=== PATIENT | female | born 1950 | race American Indian/Alaskan Native ===

== ENCOUNTER 2017-04-01 12:34 | Emergency (ER) | payer MEDICARE ==
[2017-04-01 12:38] VITALS: TEMP 97.8
[2017-04-01 14:48] LABS: CHLORIDE 104 mmol/L (98-107)
[2017-04-01 14:49] LABS: POTASSIUM 3.7 mmol/L (3.6-5.2); SODIUM 140 mmol/L (132-148)
[2017-04-01 14:51] LABS: ALB/GLOB RATIO 1.2 (1.0-2.1); ALKALINE PHOSPHATASE 112 U/L (38-126); ALT/SGPT 35 U/L (9-52); AST/SGOT 38 U/L (14-36); BILIRUBIN,TOTAL 0.6 mg/dL (0.2-1.3); BLOOD UREA NITROGEN 10 mg/dL (7-17); CARBON DIOXIDE 24 mmol/L (22-30); GFR AFRICAN-AMERICAN > 60; GLUCOSE,RANDOM 97 mg/dL (65-105); TOTAL PROTEIN 7.2 g/dL (6.3-8.3)
[2017-04-01 14:52] LABS: CALCIUM 8.3 mg/dl (8.6-10.4)
[2017-04-01 15:02] LABS: RBC URINE 5 /hpf (0-3); URINE BACTERIA RARE (<OCC); URINE BILIRUBIN NEGATIVE (NEGATIVE); URINE BLOOD NEGATIVE (NEGATIVE); URINE COLOR Yellow (YELLOW); URINE GLUCOSE (UA) 1+ mg/dL (Normal); URINE KETONE NEGATIVE (NEGATIVE); URINE LEUKOCYTE ESTERASE 3+ Leu/uL (Negative); URINE PROTEIN NEGATIVE (NEGATIVE); WBC URINE 41 /hpf (0-5)
[2017-04-01 15:28] LABS: BASO % 0.6 % (0.0-2.0); EOS # 0.1 K/uL (0.0-0.7); EOS % 1.4 % (0.0-4.0); HEMATOCRIT 43.4 % (34.0-47.0); LYMPH # 2.2 K/uL (1.0-4.3); LYMPH % 37.7 % (20.0-40.0); MEAN CELL VOLUME 96.7 fL (81.0-99.0); MEAN CORPUSCULAR HEMOGLOBIN 31.3 pg (27.0-31.0); MEAN CORPUSCULAR HGB CONC 32.4 g/dL (33.0-37.0); MEAN PLATELET VOLUME 7.6 fL (7.2-11.7); MONO # 0.4 K/uL (0.0-0.8); MONO % 6.9 % (0.0-10.0); RED CELL DISTRIBUTION WIDTH 13.6 % (11.5-14.5); WHITE BLOOD COUNT 5.7 K/uL (4.8-10.8)
--- NOTE | 2017-04-01 16:20 | C.PDOC ---
History Of Present Illness 66 y/o female presents to the emergency department for evaluation of a vague abdominal pain which began around 3 days ago. Patient reports she experienced nausea and vomiting two days ago, but the symptoms have now resolved. Patient denies fever, chills, back pain, dysuria, diarrhea. Time Seen by Provider: 04/01/17 13:29 Chief Complaint (Nursing): Abdominal Pain History Per: Patient History/Exam Limitations: no limitations Onset/Duration Of Symptoms: Days Current Symptoms Are (Timing): Still Present Location Of Pain/Discomfort: Diffuse Radiation Of Pain To:: None Quality Of Discomfort: "Pain" Associated Symptoms: Nausea, Vomiting. denies: Fever, Chills, Urinary Symptoms Additional History Per: Patient Abnormal Vaginal Bleeding: No Past Medical History Reviewed: Historical Data, Nursing Documentation, Vital Signs Vital Signs: Last Vital Signs Temp 97.8 F 04/01/17 12:37 Pulse 66 04/01/17 16:30 Resp 16 04/01/17 16:30 BP 125/80 04/01/17 16:30 Pulse Ox 97 04/01/17 17:39 - Medical History PMH: Diabetes, HTN, Hypercholesterolemia, Seizures Surgical History: No Surg Hx Family History: States: Unknown Family Hx - Social History Hx Tobacco Use: No Hx Alcohol Use: No Hx Substance Use: No - Immunization History Hx Tetanus Toxoid Vaccination: No Hx Influenza Vaccination: No Hx Pneumococcal Vaccination: No Review Of Systems Except As Marked, All Systems Reviewed And Found Negative. Constitutional: Negative for: Fever, Chills Gastrointestinal: Positive for: Nausea, Vomiting, Abdominal Pain. Negative for : Diarrhea Genitourinary: Negative for: Dysuria Physical Exam - Physical Exam Appears: Non-toxic, No Acute Distress, Other (obese) Skin: Normal Color, Warm, Dry Head: Atraumatic, Normacephalic Eye(s): bilateral: Normal Inspection Oral Mucosa: Moist Neck: Normal ROM, Supple Chest: Symmetrical, No Deformity, No Tenderness Cardiovascular: Rhythm Regular, No Murmur Respiratory: Normal Breath Sounds, No Rales, No Rhonchi, No Wheezing Gastrointestinal/Abdominal: Tenderness (vague, epigastric ), No Guarding, No Rebound Back: Normal Inspection, No Vertebral Tenderness, No Paraspinal Tenderness Extremity: Normal ROM, Capillary Refill (less than 2 seconds ) Neurological/Psych: Oriented x3, No Normal Speech (mute from prior CVA ), Normal Cognition Gait: Steady ED Course And Treatment - Laboratory Results Result Diagrams: 04/01/17 15:21 04/01/17 14:32 Lab Interpretation: Normal (trop neg, UA 41 WBC's) ECG: Interpreted By Me ECG Rhythm: Sinus Rhythm ECG Interpretation: Normal Rate From EC O2 Sat by Pulse Oximetry: 97 (on RA) Pulse Ox Interpretation: Normal - Radiology CXR: Interpreted by Me CXR Interpretation: Yes: No Acute Disease - Other Rad CT abd/pelvis X-Ray: Interpreted by Me (+FOS, no obst/no acute findings.), Read By Radiologist Progress Note: labs, CT A/P ordered and reviewed. Pt received Toradol IV. Reevaluation Time: 17:38 Reassessment Condition: Unchanged (remains asymptomatic) Medical Decision Making Medical Decision Making: acute on chronic constipation. Disposition Doctor Will See Patient In The: Office Counseled Patient/Family Regarding: Studies Performed, Diagnosis - Disposition Referrals: Karine Fam MD [Staff Provider] - Disposition: HOME/ ROUTINE Disposition Time: 17:39 Condition: GOOD Additional Instructions: drink a bottle of Mag Citrate now and re-evaluate after using the bathroom 2-3 times Continue Colace 100 mg twice a day (stool softner) to help prevent constipation More water and more walking. Follow-up with Dr. Fam Prescriptions: Nitrofurantoin Macrocrystals [Macrobid] 1 cap PO BID #9 cap Instructions: Constipation (ED), Urinary Tract Infection in Women (ED), Gas and Bloating (ED) - Clinical Impression Clinical Impression: Constipation, Colicky periumbilical abdominal pain - Scribe Statement The provider has reviewed the documentation as recorded by the Scribe (Tahira Rolon) Provider Attestation: All medical record entries made by the Scribe were at my direction and personally dictated by me. I have reviewed the chart and agree that the record accurately reflects my personal performance of the history, physical exam, medical decision making, and the department course for this patient. I have also personally directed, reviewed, and agree with the discharge instructions and disposition.
[2017-04-01] MEDS ORDERED: Iodixanol 320 MG/ML 100 ML BOTTLE IV ONE (16:21)
--- NOTE | 2017-04-01 17:32 | CT ---
PROCEDURE: CT Abdomen and Pelvis with contrast HISTORY: n/v/d x 3D, ? divertic vs colitis COMPARISON: CT abdomen and pelvis with contrast performed 12/28/15 TECHNIQUE: Contrast dose: 100 mL Visipaque This Radiation dose: Total exam DLP = 930.75 mGy-cm. This CT exam was performed using one or more of the following dose reduction techniques: Automated exposure control, adjustment of the mA and/or kV according to patient size, and/or use of iterative reconstruction technique. FINDINGS: LOWER THORAX: Basilar atelectasis. No visible pleural effusion or pneumothorax. LIVER: Hypoattenuation of the liver compatible with hepatic steatosis. GALLBLADDER AND BILE DUCTS: Unremarkable. PANCREAS: Unremarkable. SPLEEN: Unremarkable. ADRENALS: Bilateral adrenal gland hypertrophy. KIDNEYS AND URETERS: The kidneys enhance symmetrically. No evidence of hydronephrosis or obstructing calculus. VASCULATURE: Right-sided pelvic vascular stent. No aortic aneurysm. BOWEL: Stomach is nondistended. Lack of oral contrast limits evaluation for bowel pathology. Bowel loops appear within normal limits of caliber without evidence of obstruction. APPENDIX: Not identified. No secondary signs of acute appendicitis. PERITONEUM: No significant free fluid. No definite free air. LYMPH NODES: No bulky adenopathy identified. BLADDER: Decompressed urinary bladder limits evaluation. REPRODUCTIVE: Uterus is present. BONES: No acute osseous abnormality is detected. OTHER FINDINGS: None. IMPRESSION: Send bibasilar atelectasis. Hepatic steatosis. Bilateral adrenal gland hypertrophy. Additional incidental findings as above.
[2017-04-01 17:38] VITALS: O2SAT 97
[2017-04-01 18:10] VITALS: BP 106/70; PULSE 65; RESP 18
== END 2017-04-01 18:24 | disposition home or self-care (01) ==
LOC: C.ER 12:34
DX: R10.33 Periumbilical pain (principal); K59.00 Constipation, unspecified; R10.84 Generalized abdominal pain
CPT/HCPCS: 74177; 80053; 81001; 83690; 84484; 85025; 96374; 99285; G0480; J1885; Q9967

== ENCOUNTER 2017-06-26 16:35 | Emergency (ER) | payer MEDICARE ==
[2017-06-26] MEDS ORDERED: Iohexol 240 (50 ml) PO STA (16:58)
[2017-06-26] MEDS ORDERED: Sodium Chloride 0.9% 1,000 ML IV ONE (16:58)
[2017-06-26] MEDS ORDERED: Sodium Chloride 0.9% 1,000 ML ONE (17:09)
[2017-06-26] MEDS ORDERED: Iohexol 240 (50 ml) ONE (17:19)
[2017-06-26 17:29] LABS: BASO % 0.7 % (0.0-2.0); EOS # 0.1 K/uL (0.0-0.7); EOS % 1.5 % (0.0-4.0); HEMATOCRIT 44.4 % (34.0-47.0); LYMPH # 1.6 K/uL (1.0-4.3); LYMPH % 31.3 % (20.0-40.0); MEAN CELL VOLUME 95.7 fL (81.0-99.0); MEAN CORPUSCULAR HEMOGLOBIN 31.6 pg (27.0-31.0); MEAN CORPUSCULAR HGB CONC 33.1 g/dL (33.0-37.0); MEAN PLATELET VOLUME 7.8 fL (7.2-11.7); MONO # 0.4 K/uL (0.0-0.8); MONO % 7.1 % (0.0-10.0); RED CELL DISTRIBUTION WIDTH 14.1 % (11.5-14.5); WHITE BLOOD COUNT 5.1 K/uL (4.8-10.8)
[2017-06-26 17:30] LABS: RBC URINE 2 /hpf (0-3); TRANSITIONAL EPITHIAL 1 /hpf (0-3); URINE BACTERIA RARE (<OCC); URINE BILIRUBIN NEGATIVE (NEGATIVE); URINE BLOOD NEGATIVE (NEGATIVE); URINE COLOR Yellow (YELLOW); URINE GLUCOSE (UA) NORMAL (Normal); URINE HYALINE CAST 0-2 /lpf (0-2); URINE KETONE NEGATIVE (NEGATIVE); URINE PROTEIN NEGATIVE (NEGATIVE); WBC URINE 3 /hpf (0-5)
[2017-06-26 17:33] LABS: CHLORIDE 107 mmol/L (98-107)
[2017-06-26 17:34] LABS: POTASSIUM 3.1 mmol/L (3.6-5.2); SODIUM 144 mmol/L (132-148)
[2017-06-26 17:36] LABS: AST/SGOT 33 U/L (14-36); BILIRUBIN,TOTAL 0.7 mg/dL (0.2-1.3); CARBON DIOXIDE 23 mmol/L (22-30); GFR AFRICAN-AMERICAN > 60; TOTAL PROTEIN 7.4 g/dL (6.3-8.3)
[2017-06-26 17:36] LABS: URINE LEUKOCYTE ESTERASE NEGATIVE Leu/uL (Negative)
[2017-06-26 17:37] LABS: ALB/GLOB RATIO 1.1 (1.0-2.1); ALKALINE PHOSPHATASE 151 U/L (38-126); ALT/SGPT 47 U/L (9-52); BLOOD UREA NITROGEN 6 mg/dL (7-17); CALCIUM 9.6 mg/dl (8.6-10.4); GLUCOSE,RANDOM 103 mg/dL (65-105)
[2017-06-26] MEDS ORDERED: Iohexol 300 100 ML IJ ONE (17:55)
[2017-06-26] MEDS ORDERED: Potassium Chloride 20 mEq/15 ml LIQ UD PO STA (18:12)
--- NOTE | 2017-06-26 18:30 | C.PDOC ---
History Of Present Illness 66 y/o female, brought to ED by daughter, who reports the patient has been c/o right sided abdominal pain associated with 4 episodes of vomiting and nausea. Denies fever, blood in urine or stool, diarrhea, or other associated symptoms. Patient with history of CVA and has difficulty answering some questions. Chief Complaint (Nursing): Abdominal Pain History Per: Family (daughter) History/Exam Limitations: clinical condition Onset/Duration Of Symptoms: Days Current Symptoms Are (Timing): Still Present Location Of Pain/Discomfort: RUQ, RLQ Radiation Of Pain To:: None Quality Of Discomfort: "Pain" Associated Symptoms: Nausea, Vomiting. denies: Fever, Chills, Diarrhea, Urinary Symptoms Recent travel outside of the [place]: No Past Medical History Reviewed: Historical Data, Nursing Documentation, Vital Signs Vital Signs: Last Vital Signs Temp 98.2 F 06/26/17 21:11 Pulse 58 L 06/26/17 21:11 Resp 18 06/26/17 21:11 BP 97/70 L 06/26/17 21:11 Pulse Ox 97 06/26/17 21:11 - Medical History PMH: Diabetes, HTN, Hypercholesterolemia, Seizures Family History: States: Unknown Family Hx - Social History Hx Tobacco Use: No Hx Alcohol Use: No Hx Substance Use: No - Immunization History Hx Tetanus Toxoid Vaccination: No Hx Influenza Vaccination: No Hx Pneumococcal Vaccination: No Review Of Systems Except As Marked, All Systems Reviewed And Found Negative. Constitutional: Negative for: Fever, Chills Cardiovascular: Negative for: Chest Pain Respiratory: Negative for: Cough, Shortness of Breath, Wheezing Gastrointestinal: Positive for: Nausea, Vomiting, Abdominal Pain. Negative for : Diarrhea, Hematochezia Genitourinary: Negative for: Hematuria Skin: Negative for: Rash Physical Exam - Physical Exam Appears: Non-toxic, No Acute Distress Skin: Normal Color, Warm, Dry Head: Atraumatic, Normacephalic Oral Mucosa: Moist Neck: Normal ROM, Supple Chest: Symmetrical Cardiovascular: Rhythm Regular, No Murmur Respiratory: Normal Breath Sounds, No Rales, No Rhonchi, No Wheezing Gastrointestinal/Abdominal: Soft, Tenderness (R sided, mild abdominal tenderness. Lower > Upper ), No Guarding, No Rebound Back: Normal Inspection, No CVA Tenderness Extremity: Normal ROM, Capillary Refill (< 2 sec.) Neurological/Psych: Oriented x3, Normal Speech, Normal Cognition ED Course And Treatment - Laboratory Results Result Diagrams: 06/26/17 17:18 06/26/17 17:18 O2 Sat by Pulse Oximetry: 95 (RA) Pulse Ox Interpretation: Normal Progress Note: CT abdomen/pelvis and labs ordered. Zofran, IVFs, potassium chloride po given. Disposition - Disposition Referrals: Shoaib Fam [Staff Provider] - Disposition: HOME/ ROUTINE Disposition Time: 21:00 Condition: IMPROVED Additional Instructions: Thank you for letting us take care of you today. Your provider was Dr. Martini. You were treated for abdominal pain. The emergency medical care you received today was directed at your acute symptoms. If you were prescribed any medication, please fill it and take as directed. It may take several days for your symptoms to resolve. Return to the Emergency Department if your symptoms worsen, do not improve, or if you have any other problems. Please contact your doctor or call one of the physicians/clinics you have been referred to that are listed on the Patient Visit Information form that is included in your discharge packet. Bring any paperwork you were given at discharge with you along with any medications you are taking to your follow up visit. Our treatment cannot replace ongoing medical care by a primary care provider (PCP) outside of the emergency department. Thank you for allowing the [facility] team to be part of your care today. Follow up with your doctor in 1-2 days for re-evaluation and further management. Instructions: Abdominal Pain (ED) Forms: [employer] ([place]) - Clinical Impression Clinical Impression: Abdominal pain - Scribe Statement The provider has reviewed the documentation as recorded by the John Paul Flores Provider Attestation: All medical record entries made by the John Paul were at my direction and personally dictated by me. I have reviewed the chart and agree that the record accurately reflects my personal performance of the history, physical exam, medical decision making, and the department course for this patient. I have also personally directed, reviewed, and agree with the discharge instructions and disposition.
[2017-06-26] MEDS ORDERED: Potassium Chloride 20 mEq/15 ml LIQ UD ONE (18:39)
[2017-06-26 19:21] VITALS: RESP 18
--- NOTE | 2017-06-26 20:53 | CT ---
EXAM: CT Abdomen and Pelvis With Intravenous Contrast EXAM DATE/TIME: Exam ordered 06/26/2017 4:59 PM CLINICAL HISTORY: 66 years old, female; Pain; Abdominal pain; Flank; Right lower quadrant (rlq); Additional info: Right-sided abdominal pain - rlq>ruq TECHNIQUE: Axial computed tomography images of the abdomen and pelvis with intravenous contrast. All CT scans at this facility use one or more dose reduction techniques, viz.: automated exposure control; ma/kV adjustment per patient size (including targeted exams where dose is matched to indication; i.e. head); or iterative reconstruction technique. Coronal and sagittal reformatted images were created and reviewed. CONTRAST: 100 mL of OMNI 300 administered intravenously. COMPARISON: CT - ABD PELVIS IV CONTRAST ONLY 12/28/2015 10:19:37 PM FINDINGS: Lower thorax: Mild hypoventilatory changes noted in the dependent portion of both lung bases. There tiny bilateral pleural effusions. There is a small hiatal hernia. ABDOMEN: Liver: Unremarkable. No mass. Gallbladder and bile ducts: Unremarkable. No calcified stones. No ductal dilation. Pancreas: Unremarkable. No mass. No ductal dilation. Spleen: Unremarkable. No splenomegaly. Adrenals: Unremarkable. No mass. Kidneys and ureters: 2 less than 2 mm low-density subcapsular renal lesions are seen in the right kidney. No hydronephrosis. Stomach and bowel: There are scattered colonic diverticula. No obstruction. No mucosal thickening. Appendix: No findings to suggest acute appendicitis. PELVIS: Bladder: Unremarkable. No mass. Reproductive: Unremarkable as visualized. ABDOMEN and PELVIS: Intraperitoneal space: Unremarkable. No free air. No significant fluid collection. Bones/joints: No acute fracture. No dislocation. Soft tissues: There is a healed infraumbilical midline abdominal incision. Vasculature: There is a right iliofemoral graft. A high-grade stenosis is noted the just beyond the anastomosis to the right common iliac vein. The right superficial femoral artery appears occluded. Severe atherosclerotic disease is noted of the left common iliac and external iliac artery. The vessel occludes at the level of the superficial femoral artery.. No abdominal aortic aneurysm. Lymph nodes: Unremarkable. No enlarged lymph nodes. IMPRESSION: 1. High grade stenosis noted within the right ilio-femoral graft just beyond the common iliac anastomosis.. 2. Severe atherosclerotic narrowing noted of the left common and external iliac artery. 3. 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 4. Scattered colonic diverticula. 5. Small hiatal hernia. 6. Tiny bilateral pleural effusions with mild hypoventilatory changes are present in the dependent portion of both lung bases.
[2017-06-26 21:11] VITALS: BP 97/70; PULSE 58; TEMP 98.2
[2017-06-26 21:44] VITALS: O2SAT 95
== END 2017-06-26 21:19 | disposition home or self-care (01) ==
LOC: C.ER 16:35
DX: R10.9 Unspecified abdominal pain (principal); I10 Essential (primary) hypertension; E11.9 Type 2 diabetes mellitus without complications
CPT/HCPCS: 74177; 80053; 81001; 83690; 85025; 87086; 87181; 96361; 96374; 96376; 99285; J2405; J7040; Q9966; Q9967

== ENCOUNTER 2017-09-08 09:03 | Emergency (ER) | payer MEDICARE ==
[2017-09-08 10:03] VITALS: RESP 20; TEMP 98.3
--- NOTE | 2017-09-08 10:11 | C.PDOC ---
History Of Present Illness 66 y/o female, whose PMHx includes CVA, DM, HTN, Hypercholesterolemia,and seizures, is brought to ED by EMS and accompanied by daughter, who reports the patient has been c/o right sided abdominal pain associated with vomiting and nausea since this morning. Patient's daughter, who is at bedside, states patient 's vomitus appeared "black." h/o episodes of abdominal pain in the past, first time with dark emisis. Denies fever, blood in urine or stool, diarrhea, or other associated symptoms. Denies symptoms. Patient with history of CVA and has difficulty answering some questions. Normal BM yesterday. Time Seen by Provider: 09/08/17 09:50 Chief Complaint (Nursing): GI Problem History Per: Family (daughter) History/Exam Limitations: clinical condition Current Symptoms Are (Timing): Still Present Location Of Pain/Discomfort: Diffuse Radiation Of Pain To:: None Quality Of Discomfort: "Pain" Associated Symptoms: Nausea, Vomiting. denies: Fever, Diarrhea Additional History Per: EMS, Family Abnormal Vaginal Bleeding: No Past Medical History Reviewed: Historical Data, Nursing Documentation, Vital Signs Vital Signs: Last Vital Signs Temp 98.3 F 09/08/17 09:05 Pulse 63 09/08/17 13:55 Resp 20 09/08/17 13:55 BP 121/70 09/08/17 13:55 Pulse Ox 98 09/08/17 15:53 - Medical History PMH: Diabetes, HTN, Hypercholesterolemia, Seizures Surgical History: Coronary Stent Other Surgeries: unknown abdominal surgery, many years ago Family History: States: Unknown Family Hx - Social History Hx Tobacco Use: No Hx Alcohol Use: No Hx Substance Use: No - Immunization History Hx Tetanus Toxoid Vaccination: No Hx Influenza Vaccination: No Hx Pneumococcal Vaccination: No Review Of Systems Constitutional: Negative for: Fever Cardiovascular: Negative for: Chest Pain Gastrointestinal: Positive for: Nausea, Vomiting, Abdominal Pain. Negative for : Diarrhea, Hematochezia Genitourinary: Negative for: Dysuria, Frequency, Incontinence Physical Exam - Physical Exam Appears: Non-toxic, No Acute Distress Skin: Normal Color, Warm, Dry Head: Atraumatic, Normacephalic Eye(s): bilateral: Normal Inspection, EOMI Oral Mucosa: Moist Neck: Supple Chest: Symmetrical, No Deformity, No Tenderness Cardiovascular: Rhythm Regular, No Murmur Respiratory: Normal Breath Sounds, No Rales, No Rhonchi, No Wheezing Gastrointestinal/Abdominal: Soft, Tenderness (diffuse), No Guarding, No Rebound , Other (healed surgical incision to midline of lower quadrants ) Back: No CVA Tenderness, No Vertebral Tenderness Extremity: Capillary Refill (less than 2 seconds ) Neurological/Psych: Oriented x3, Normal Speech, Normal Cognition Gait: Steady Other Neurological Findings: Other (residual right-sided hemiparesis ) ED Course And Treatment - Laboratory Results Result Diagrams: 09/08/17 10:35 09/08/17 10:35 O2 Sat by Pulse Oximetry: 98 (on RA) Pulse Ox Interpretation: Normal Progress Note: Bloodwork and UA ordered and reviewed. Protonix IVP, Toradol IVP , Zofran IVP, and IV Fluids administered. On re-evaluation, pt notes pain persists. (+) lower abdomen tenderness. CT ordered. Stool occult was tried to retreive , no stool in vault. On re-evalaution, pain improved. Tolerating PO . Afebrile. Abdomen soft non tender. Discussed with daughter admission for further evaluation. daughter and pt note that pt does not want to stay in the hospital. Daughter states that she has been taking care of her mother for 13 years, she is at her baseline without any acute distress. Discussed signs of concnern and instructed to return to ER if any arise. Notes she has appt with Dr Fam on Saturday which she will follow up with. Dr Fam called but no call back . Pt and campground caretaker request discharge. Dr Fam called back at 430pm, after pt was discharged, discharge case and findings. notes he will follow up in the office. Discussed with Dr Blunt who evaluated labs and CT and agreed upon plan and discharge. Disposition - Disposition Referrals: Karine Fam MD [Staff Provider] - Disposition: HOME/ ROUTINE Disposition Time: 14:39 Condition: STABLE Additional Instructions: Follow up with your primary medical doctor or clinic in 2-5 days for further evaluation. Take medications as prescribed. Return to the emergency department at any time if symptoms persist or worsen. Prescriptions: Polyethylene Glycol 3350 [Miralax] 17 gm PO DAILY #85 gm Instructions: Constipation (ED), Acute Nausea and Vomiting (ED) Forms: [employer] ([place]) - Clinical Impression Clinical Impression: Constipation, Abdominal pain, Vomiting - PA / CASH PERSON / Resident Statement MD/DO has reviewed & agrees with the documentation as recorded. - Scribe Statement The provider has reviewed the documentation as recorded by the Scribe (Tahira Rolon) All medical record entries made by the Scribe were at my direction and personally dictated by me. I have reviewed the chart and agree that the record accurately reflects my personal performance of the history, physical exam, medical decision making, and the department course for this patient. I have also personally directed, reviewed, and agree with the discharge instructions and disposition.
[2017-09-08] MEDS ORDERED: Sodium Chloride 0.9% 1,000 ML IV ONE (10:13)
[2017-09-08] MEDS ORDERED: Sodium Chloride 0.9% 1,000 ML ONE (10:39)
[2017-09-08 10:44] LABS: BASO % 0.6 % (0.0-2.0); EOS % 0.7 % (0.0-4.0); HEMATOCRIT 42.7 % (34.0-47.0); LYMPH # 1.5 K/uL (1.0-4.3); LYMPH % 21.4 % (20.0-40.0); MEAN CELL VOLUME 96.1 fL (81.0-99.0); MEAN CORPUSCULAR HEMOGLOBIN 31.7 pg (27.0-31.0); MEAN PLATELET VOLUME 7.8 fL (7.2-11.7); MONO # 0.4 K/uL (0.0-0.8); MONO % 5.7 % (0.0-10.0); RED CELL DISTRIBUTION WIDTH 13.8 % (11.5-14.5)
[2017-09-08 10:49] LABS: RBC URINE 5 /hpf (0-3); URINE BILIRUBIN NEGATIVE (NEGATIVE); URINE BLOOD 1+ (NEGATIVE); URINE COLOR Yellow (YELLOW); URINE GLUCOSE (UA) NORMAL (Normal); URINE KETONE NEGATIVE (NEGATIVE); URINE LEUKOCYTE ESTERASE 1+ Leu/uL (Negative); URINE PROTEIN NEGATIVE (NEGATIVE); URINE UROBILINOGEN NORMAL mg/dL (0.2-1.0); WBC URINE 4 /hpf (0-5)
[2017-09-08 10:50] LABS: CHLORIDE 104 mmol/L (98-107); POTASSIUM 3.5 mmol/L (3.6-5.2); SODIUM 137 mmol/L (132-148)
[2017-09-08 10:52] LABS: BILIRUBIN,TOTAL 0.4 mg/dL (0.2-1.3); GFR AFRICAN-AMERICAN > 60
[2017-09-08 10:53] LABS: ALKALINE PHOSPHATASE 131 U/L (38-126); ALT/SGPT 55 U/L (9-52); AST/SGOT 27 U/L (14-36); BLOOD UREA NITROGEN 10 mg/dL (7-17); CALCIUM 8.6 mg/dl (8.6-10.4); CARBON DIOXIDE 21 mmol/L (22-30); GLUCOSE,RANDOM 143 mg/dL (65-105); TOTAL PROTEIN 7.9 g/dL (6.3-8.3)
[2017-09-08] MEDS ORDERED: Iodixanol 320 mg/ml 150 ml Bottle IV ONE (12:19)
[2017-09-08 13:56] VITALS: BP 121/70; PULSE 63
--- NOTE | 2017-09-08 14:01 | CT ---
PROCEDURE: CT Abdomen and Pelvis with contrast HISTORY: Abdominal pain COMPARISON: 06/26/2017. TECHNIQUE: Contrast dose: 100 mL Visipaque Radiation dose: Total exam DLP = 1035.03 MGy-cm. This CT exam was performed using one or more of the following dose reduction techniques: Automated exposure control, adjustment of the mA and/or kV according to patient size, and/or use of iterative reconstruction technique. FINDINGS: LOWER THORAX: There is dependent atelectasis in the lung bases. LIVER: The liver is normal in size and there is diffuse fatty infiltration. No gross lesion or ductal dilatation. GALLBLADDER AND BILE DUCTS: No calcified gallstones. PANCREAS: Normal in size with homogeneous enhancement. No gross lesion or ductal dilatation. SPLEEN: Normal in size and appearance. ADRENALS: No discrete nodule. KIDNEYS AND URETERS: Both kidneys are normal in size and there is homogeneous enhancement. There is a small cortical cyst in the left lower pole. No hydronephrosis. No solid mass. VASCULATURE: There are advanced atherosclerotic aortoiliac calcifications. There is endovascular stent graft in the right external right iliac artery. No aortic aneurysm. BOWEL: The small bowel loops are normal in caliber. There is moderate amount of stool in the colon and fecalization of small bowel contents. No bowel dilatation or obstruction. There is scattered colonic diverticula without CT evidence for acute diverticulitis. APPENDIX: No inflammatory changes in the right lower quadrant. PERITONEUM: No free fluid. No free air. LYMPH NODES: No enlarged lymph nodes. BLADDER: Unremarkable. REPRODUCTIVE: Unremarkable. BONES: No acute fracture. Within normal limits for the patient's age. OTHER FINDINGS: There is a small sliding hiatal hernia. IMPRESSION: No acute abdominal or pelvic abnormality. Scattered colonic diverticula without CT evidence for acute diverticulitis. Constipation with fecal stasis in the small bowel. Severe atherosclerotic aortoiliac disease. Fatty liver.
[2017-09-08 14:42] VITALS: O2SAT 98
== END 2017-09-08 15:04 | disposition home or self-care (01) ==
LOC: C.ER 09:03
DX: K59.00 Constipation, unspecified (principal); R11.10 Vomiting, unspecified; R10.9 Unspecified abdominal pain; I10 Essential (primary) hypertension; E11.9 Type 2 diabetes mellitus without complications; E78.00 Pure hypercholesterolemia, unspecified; Z87.891 Personal history of nicotine dependence
CPT/HCPCS: 74177; 80053; 81001; 83690; 85025; 96361; 96374; 96375; 99285; C9113; J1885; J2405; J7040; Q9967

== ENCOUNTER 2018-12-13 13:15 | Outpatient (CLI) | payer MEDICARE | END 2018-12-13 13:16 | disposition home or self-care (01) | LOC: C.MAMMO 13:15 | DX: Z12.31 Encounter for screening mammogram for malignant neoplasm of breast (principal) ==

== ENCOUNTER 2019-01-03 19:45 | Emergency (ER) | payer MEDICARE ==
[2019-01-03 19:46] VITALS: BMI 37.8
[2019-01-03 20:33] VITALS: TEMP 98; O2SAT 96
--- NOTE | 2019-01-03 20:43 | C.PDOC ---
History Of Present Illness 68 y/o female, with history of a previous stroke with right-sided weakness, comes in complaining of some cough, right-sided chest wall pain, and leg pain since earlier today. Most history was from daughter as patient has difficulty with her history; however patient is awake, alert, and oriented in the ER. As per daughter, patient is at baseline with no new neurological deficits. Time Seen by Provider: 01/03/19 20:42 Chief Complaint (Nursing): Chest Pain History Per: Family History/Exam Limitations: no limitations Onset/Duration Of Symptoms: Hrs Current Symptoms Are (Timing): Still Present Severity: Moderate Pain Scale Rating Of: 4 Quality: "Pain" Exacerbating Factors: None Recent travel outside of the [place]: No Additional History Per: Patient Past Medical History Reviewed: Historical Data, Nursing Documentation, Vital Signs Vital Signs: Last Vital Signs Temp 98 F 01/03/19 20:17 Pulse 105 H 01/03/19 20:17 Resp 13 01/03/19 20:17 BP 143/107 H 01/03/19 20:17 Pulse Ox 96 01/03/19 20:17 - Medical History PMH: Diabetes, HTN, Hypercholesterolemia, Seizures Surgical History: Coronary Stent Family History: States: No Known Family Hx - Social History Hx Tobacco Use: No Hx Alcohol Use: No Hx Substance Use: No - Immunization History Hx Tetanus Toxoid Vaccination: No Hx Influenza Vaccination: No Hx Pneumococcal Vaccination: No Review Of Systems Constitutional: Negative for: Fever, Chills Cardiovascular: Positive for: Chest Pain (right-sided chest wall pain). N egative for: Palpitations Respiratory: Positive for: Cough. Negative for: Shortness of Breath Gastrointestinal: Negative for: Nausea, Vomiting, Abdominal Pain, Diarrhea Genitourinary: Negative for: Dysuria, Hematuria Musculoskeletal: Positive for: Leg Pain (right) Neurological: Negative for: Headache, Dizziness Physical Exam - Physical Exam Appears: Non-toxic, No Acute Distress Skin: Warm, Dry Head: Normacephalic Eye(s): bilateral: PERRL Oral Mucosa: Moist Teeth: Edentulous Neck: Supple Chest: Tenderness (right chest wall tenderness under right breast, no rash noted) Cardiovascular: Rhythm Regular, No Murmur Respiratory: No Accessory Muscle Use, No Rales, Rhonchi (scattered), No Wheezing Gastrointestinal/Abdominal: Bowel Sounds (normal), Soft, No Tenderness, Distention, Other (obese) Extremity: No Pedal Edema, Other (right arm contracted) Neurological/Psych: Oriented x3, Normal Speech, Other (no focal deficits) ED Course And Treatment - Laboratory Results Result Diagrams: 01/03/19 21:00 01/03/19 21:00 ECG: Interpreted By Me, Viewed By Me ECG Rhythm: Sinus Rhythm (104), Nonspecific Changes (lvh) O2 Sat by Pulse Oximetry: 96 (RA) Pulse Ox Interpretation: Normal - Radiology CXR Interpretation: No: Infiltrates, Fracture, Cardiomegaly - CT Scan/US Ct head Other Rad Studies (CT/US): Read By Radiologist, Radiology Report Reviewed CT/US Interpretation: EXAM: CT Head without Intravenous Contrast. CLINICAL HISTORY: Patient with old hx of rt CVA Right sided weakness today Old report unobtainable. TECHNIQUE: Axial computed tomography images of the head/brain without intravenous contrast. 0.00 mGy-cm. COMPARISON: Comparison is made to previous CT brain examination dated 01/10/2012. FINDINGS: BRAIN. No acute intraparenchymal hemorrhage. No mass lesion. No CT evidence for acute territorial infarct. No midline shift or extra-axial collections. A large zone of post ischemic infarction and encephalomalacia is again identified in the left tnpikoo-baprekuy-etbuhudx regions. There are bilateral periventricular and subcortical white matter hypolucencies compatible with mild chronic microvascul ar disease. VENTRICLES: Asymmetrical dilatation of the left lateral ventricle is again noted, compensatory for the left sided encephalomalacia. ORBITS: The orbits are unremarkable. SINUSES AND MASTOIDS: Mucoperiosteal thickening is noted in the left sphenoid sinus compatible with sinusitis. The remaining paranasal sinuses and mastoid air cells are clear. BONES: No fracture. SOFT TISSUES: Unremarkable. IMPRESSION: 1. No acute intracranial abnormality. 2. Large zone of post ischemic infarction encephalomalacia in the left mkditvr-tlbgibvc-xwnfxgef lobes. 3. Compensatory dilatation of the left lateral ventricle again demonstrated. 4. Sphenoid sinusitis. 5. Otherwise, no significant interval change. . Electronically signed on Jan 03, 2019 10:17:27 PM EST by: Natalio Tapia M.D., [place] Certified By ABR & [facility]. Fellowship Trained MRI and CT Specialist Progress Note: Plan: --VBG. --Head CT. --EKG. --Labs. --Chest XR. --UA. --IV fluids 1L. pt has appointment on Saturday with dr Fam. They want to go to that appointment. do not want to stay Reevaluation Time: 00:08 Reassessment Condition: Improved Disposition Counseled Patient/Family Regarding: Studies Performed, Diagnosis, Need For Followup, Rx Given - Disposition Referrals: Karine Fam MD [Staff Provider] - Disposition: HOME/ ROUTINE Disposition Time: 20:42 Condition: FAIR Additional Instructions: Please return if symptoms recur Prescriptions: Ketorolac Tromethamine [Toradol] 10 mg PO TID PRN #12 tab PRN Reason: Pain, Severe (8-10) Ondansetron ODT [Zofran ODT] 1 odt PO BID PRN #6 odt PRN Reason: Nausea/Vomiting Instructions: Mastalgia (DC) Forms: [employer] (Greek) - Clinical Impression Clinical Impression: Mastalgia in female - Scribe Statement The provider has reviewed the documentation as recorded by the John Paul Wilkinson Provider Attestation: All medical record entries made by the Aurelioibgael were at my direction and personally dictated by me. I have reviewed the chart and agree that the record accurately reflects my personal performance of the history, physical exam, medical decision making, and the department course for this patient. I have also personally directed, reviewed, and agree with the discharge instructions and disposition.
[2019-01-03] MEDS ORDERED: Sodium Chloride 0.9% 1,000 ML IV SCH (21:00)
[2019-01-03 21:04] LABS: BASO # 0.2 K/uL (0.0-0.2); BASO % 2.7 % (0.0-2.0); EOS % 0.5 % (0.0-4.0); HEMOGLOBIN 16.1 g/dL (11.0-16.0); LYMPH # 2.4 K/uL (1.0-4.3); LYMPH % 35.2 % (20.0-40.0); MEAN CELL VOLUME 96.4 fL (81.0-99.0); MEAN CORPUSCULAR HEMOGLOBIN 31.7 pg (27.0-31.0); MEAN CORPUSCULAR HGB CONC 32.8 g/dL (33.0-37.0); MEAN PLATELET VOLUME 7.7 fL (7.2-11.7); MONO # 0.4 K/uL (0.0-0.8); MONO % 5.5 % (0.0-10.0); NEUT # 3.9 K/uL (1.8-7.0); NEUT % 56.1 % (50.0-75.0); NRBC % 0.1 % (0.0-2.0); RBC 5.07 Mil/uL (3.80-5.20); RED CELL DISTRIBUTION WIDTH 14.4 % (11.5-14.5); WHITE BLOOD COUNT 6.9 K/uL (4.8-10.8)
[2019-01-03 21:16] LABS: ALB/GLOB RATIO 1.3 (1.0-2.1); ALBUMIN 4.4 g/dL (3.5-5.0); BLOOD UREA NITROGEN 7 mg/dL (7-17); CALCIUM 9.2 mg/dl (8.6-10.4); GFR NON-AFRICAN AMERICAN > 60
[2019-01-03 21:31] LABS: INR 1.1; PROTHROMBIN TIME 11.9 SECONDS (9.7-12.2)
[2019-01-03 21:32] LABS: ALT/SGPT 32 U/L (9-52); AST/SGOT 30 U/L (14-36)
[2019-01-03 22:09] LABS: SQUAMOUS EPITHIAL 5 /hpf (0-5); URINE AMORPHOUS SEDIMENT OCC /ul (<OCC); URINE BILIRUBIN NEGATIVE (NEGATIVE); URINE BLOOD NEGATIVE (NEGATIVE); URINE CLARITY Hazy (Clear); URINE COLOR Yellow (YELLOW); URINE GLUCOSE (UA) 3+ mg/dL (Normal); URINE LEUKOCYTE ESTERASE NEG Leu/uL (Negative); URINE PROTEIN NEGATIVE (NEGATIVE)
[2019-01-04 00:16] VITALS: BP 148/92; PULSE 94; RESP 20
--- NOTE | 2019-01-04 09:05 | CT ---
Date of service: 01/03/2019 PROCEDURE: CT HEAD WITHOUT CONTRAST. HISTORY: hx of cva, r sided weakness(old) COMPARISON: Comparison is made to the previous study dated 01/10/2012 TECHNIQUE: Axial computed tomography images were obtained through the head/brain without intravenous contrast. Radiation dose: Total exam DLP = 1185.62 mGy-cm. This CT exam was performed using one or more of the following dose reduction techniques: Automated exposure control, adjustment of the mA and/or kV according to patient size, and/or use of iterative reconstruction technique. FINDINGS: HEMORRHAGE: No intracranial hemorrhage. BRAIN: Again noted is encephalomalacia at the left cerebral hemisphere consistent with old left MCA territory infarct. Mild volume loss is noted. White matter changes are again noted suggestive of chronic microvascular ischemic disease. VENTRICLES: Ex vacuo dilatation ventricle is again noted. Possible mild the hydrocephalus. CALVARIUM: Unremarkable. PARANASAL SINUSES: Moderate mucosal thickening noted in the left sphenoid sinus. MASTOID AIR CELLS: Unremarkable as visualized. No inflammatory changes. OTHER FINDINGS: None. IMPRESSION: No evidence of acute intracranial hemorrhage intracranial collection mass effect or midline shift. Redemonstration of large encephalomalacia at the left cerebral hemisphere consistent with old left MCA territory infarct and associated with ex vacuo dilatation of the left lateral ventricle. Volume loss and chronic microvascular ischemic disease. Additional findings as discussed above. Preliminary report contains concordant findings was submitted by [facility] Radiology.
--- NOTE | 2019-01-04 12:51 | RAD ---
Date of service: 01/03/2019 PROCEDURE: CHEST RADIOGRAPH, 1 VIEW HISTORY: SOB COMPARISON: Comparison is made with 02/18/2015 FINDINGS: LUNGS: No evidence of significant infiltrate or consolidation in the lungs. PLEURA: No pneumothorax or pleural fluid seen. CARDIOVASCULAR: No aortic atherosclerotic calcification present. Normal. OSSEOUS STRUCTURES: No significant abnormalities. VISUALIZED UPPER ABDOMEN: Normal. OTHER FINDINGS: None. IMPRESSION: No active disease.
--- NOTE | 2019-01-06 21:21 | CARD ---
APPROVED REPORT Date of service: 01/03/2019 EKG Measurement Heart [id number] <Conclusion> Sinus tachycardia Voltage criteria for left ventricular hypertrophy Nonspecific T wave abnormality Misplaced precordial leads Please repeat Abnormal ECG
== END 2019-01-04 00:16 | disposition home or self-care (01) ==
LOC: C.ER 19:45
DX: N64.4 Mastodynia (principal); I10 Essential (primary) hypertension; E78.00 Pure hypercholesterolemia, unspecified; E11.9 Type 2 diabetes mellitus without complications; Z95.5 Presence of coronary angioplasty implant and graft; Z87.891 Personal history of nicotine dependence
CPT/HCPCS: 70450; 71045; 80053; 81001; 83735; 84484; 85025; 85610; 85730; 87040; 93005; 96374; 99284; J2405; J7030

== ENCOUNTER 2019-01-05 11:21 | Outpatient (CLI) | payer MEDICARE | END 2019-01-05 11:22 | disposition home or self-care (01) | LOC: C.MAMMO 11:22 ==